=== PATIENT | male | born 1970 | race Caucasian/White ===

== ENCOUNTER 2019-10-18 10:11 | Emergency (ER) | payer BC ==
[2019-10-18] MEDS ORDERED: Sodium Chloride 0.9% 10 ML Syringe FLUSH PRN (11:06)
--- NOTE | 2019-10-18 11:11 | EDM.PDOC ---
ED HPI GENERAL MEDICAL PROBLEM - General Chief Complaint: Abdominal Pain Stated Complaint: LOW ABD PAIN Time Seen by Provider: 10/18/19 11:02 Source of Information: Reports: Patient, RN Notes Reviewed History Limitations: Reports: No Limitations - History of Present Illness INITIAL COMMENTS - FREE TEXT/NARRATIVE: 49-year-old gentleman presents emergency department a complaint of abdominal pain, he states he has had abdominal pain for the last 4 days his biggest concern is he has abdominal distention he does have a past surgical history of a Chari, no nausea no vomiting no fevers Lower Abdomen Pain Score (Numeric/FACES): 2 - Related Data Allergies Allergy/AdvReac Type Severity Reaction Status Date / Time No Known Allergies Allergy Verified 10/18/19 10:27 Home Meds: Home Meds Citalopram [Citalopram HBr] 20 mg PO DAILY 10/18/19 [History] Thiamine [Vitamin B-1] 200 mg IM ONETIME 10/18/19 [History] Past Medical History Gastrointestinal History: Reports: GERD Psychiatric History: Reports: Anxiety Hematologic History: Reports: Other (See Below) Other Hematologic History: vitamin B deficiency Dermatologic History: Reports: Other (See Below) Other Dermatologic History: rosasa - Past Surgical History HEENT Surgical History: Reports: Adenoidectomy, Tonsillectomy GI Surgical History: Reports: Appendectomy, Chari Fundoplication Other GI Surgeries/Procedures: 2002 Social & Family History - Tobacco Use Smoking Status *Q: Never Smoker - Caffeine Use Caffeine Use: Reports: Coffee - Recreational Drug Use Recreational Drug Use: No ED ROS GENERAL - Review of Systems Review Of Systems: See Below Constitutional: Reports: No Symptoms Respiratory: Reports: No Symptoms Cardiovascular: Reports: No Symptoms GI/Abdominal: Reports: Abdominal Pain, Distension. Denies: Nausea, Vomiting : Reports: No Symptoms ED EXAM, GI/ABD - Physical Exam Exam: See Below Exam Limited By: No Limitations General Appearance: Alert, WD/WN, No Apparent Distress Respiratory/Chest: No Respiratory Distress, Lungs Clear, Normal Breath Sounds, No Accessory Muscle Use, Chest Non-Tender Cardiovascular: Regular Rate, Rhythm, No Murmur GI/Abdominal Exam: Soft, Distended, Tender Course - Vital Signs Last Recorded V/S: Last Vital Signs Temp 96.2 F L 10/18/19 10:32 Pulse 94 10/18/19 10:32 Resp 16 10/18/19 10:32 BP 128/90 10/18/19 10:32 Pulse Ox 97 10/18/19 10:32 - Orders/Labs/Meds Orders: Active Orders 24 hr Category Date Time Status Peripheral IV Care [RC] . DIRECTED Care 10/18/19 11:06 Active UA W/MICROSCOPIC [URIN] Urgent Lab 10/18/19 11:06 Ordered Iopamidol [Isovue-300 (61%)] Med 10/18/19 11:33 Active 118 ml IV . DIRECTED PRN Lactated Ringers [Ringers, Lactated] 1,000 ml Med 10/18/19 11:15 Active IV ASDIRECTED Sodium Chloride 0.9% [Normal Saline] 85 ml Med 10/18/19 11:45 Active IV ASDIRECTED Sodium Chloride 0.9% [Saline Flush] Med 10/18/19 11:06 Active 10 ml FLUSH ASDIRECTED PRN Peripheral IV Insertion Adult [OM.PC] Urgent Oth 10/18/19 11:06 Ordered Medication Orders Lactated Ringer's (Ringers, Lactated) 1,000 mls @ 999 mls/hr IV ASDIRECTED [facility] Last Admin: 10/18/19 11:49 Dose: 999 mls/hr Documented by: PREILOR Sodium Chloride (Normal Saline) 85 mls @ 3.5 mls/sec IV ASDIRECTED [facility] Stop: 10/18/19 20:00 Last Admin: 10/18/19 11:47 Dose: 3.5 mls/sec Documented by: ALEJA Iopamidol (Isovue-300 (61%)) 118 ml IV . DIRECTED PRN PRN Reason: RADIOLOGY EXAM Stop: 10/19/19 11:34 Last Admin: 10/18/19 11:48 Dose: 118 ml Documented by: ALEJA Sodium Chloride (Saline Flush) 10 ml FLUSH ASDIRECTED PRN PRN Reason: Keep Vein Open Last Admin: 10/18/19 11:41 Dose: 10 ml Documented by: ALEJA Labs: Laboratory Tests 10/18/19 10/18/19 10/18/19 Range/Units 11:27 11:27 11:27 WBC 5.6 (4.5-11.0) K/uL RBC 5.16 (4.30-5.90) M/uL Hgb 15.7 H (12.0-15.0) g/dL Hct 46.7 (40.0-54.0) % MCV 91 (80-98) fL MCH 30 (27-31) pg MCHC 34 (32-36) % Plt Count 234 (150-400) K/uL Neut % (Auto) 53 (36-66) % Lymph % (Auto) 33 (24-44) % Major % (Auto) 10 H (2-6) % Eos % (Auto) 2 (2-4) % Baso % (Auto) 1 (0-1) % Sodium 140 (140-148) mmol/L Potassium 4.1 (3.6-5.2) mmol/L Chloride 104 (100-108) mmol/L Carbon Dioxide 29 (21-32) mmol/L Anion Gap 7.2 (5.0-14.0) mmol/L BUN 19 H (7-18) mg/dL Creatinine 1.3 (0.8-1.3) mg/dL Est Cr Clr Drug Dosing 72.40 mL/min Estimated GFR (MDRD) 58 L (>60) Glucose 97 (74-106) mg/dL Lactic Acid 1.4 (0.4-2.0) mmol/L Calcium 9.2 (8.5-10.1) mg/dL Total Bilirubin 0.5 (0.2-1.0) mg/dL AST 25 (15-37) U/L ALT 54 (12-78) U/L Alkaline Phosphatase 53 (46-116) U/L Troponin I < 0.017 (0.000-0.056) ng/mL Total Protein 7.7 (6.4-8.2) g/dL Albumin 4.2 (3.4-5.0) g/dL Globulin 3.5 (2.3-3.5) g/dL Albumin/Globulin Ratio 1.2 (1.2-2.2) Lipase 108 (73-393) U/L Meds: Medications Generic Name Dose Route Start Last Admin Trade Name Freq PRN Reason Stop Dose Admin Lactated Ringer's 1,000 mls @ 999 mls/hr 10/18/19 11:15 10/18/19 11:49 Ringers, Lactated IV 999 mls/hr ASDIRECTED [facility] Administration Sodium Chloride 85 mls @ 3.5 mls/sec 10/18/19 11:45 10/18/19 11:47 Normal Saline IV 10/18/19 20:00 3.5 mls/sec ASDIRECTED [facility] Administration Iopamidol 118 ml 10/18/19 11:33 10/18/19 11:48 Isovue-300 (61%) IV 10/19/19 11:34 118 ml . DIRECTED PRN Administration RADIOLOGY EXAM Sodium Chloride 10 ml 10/18/19 11:06 10/18/19 11:41 Saline Flush FLUSH 10 ml ASDIRECTED PRN Administration Keep Vein Open Departure - Departure Time of Disposition: 12:39 Disposition: Home, Self-Care 01 Condition: Fair Clinical Impression: Abdominal distention - Discharge Information Instructions: Abdominal Bloating Referrals: PCP,None [Primary Care Provider] - Forms: ED Department Discharge Additional Instructions: Continue with your regular diet, please followup with your primary care provider in 3-5 days if not better, please call return to the emergency department with worsening of symptoms. Sepsis Event Note (ED) - Evaluation Sepsis Screening Result: No Definite Risk - Focused Exam Vital Signs: Vital Signs Temp Pulse Resp BP Pulse Ox 10/18/19 10:32 96.2 F L 94 16 128/90 97 10/18/19 10:27 96.2 F L 94 16 128/90 97 10/18/19 10:24 96.2 F L 94 16 128/90 97 - My Orders Last 24 Hours: My Active Orders 10/18/19 11:06 Peripheral IV Care [RC] . DIRECTED UA W/MICROSCOPIC [URIN] Urgent Sodium Chloride 0.9% [Saline Flush] 10 ml FLUSH ASDIRECTED PRN Peripheral IV Insertion Adult [OM.PC] Urgent 10/18/19 11:15 Lactated Ringers [Ringers, Lactated] 1,000 ml IV ASDIRECTED 10/18/19 11:33 Iopamidol [Isovue-300 (61%)] 118 ml IV . DIRECTED PRN 10/18/19 11:45 Sodium Chloride 0.9% [Normal Saline] 85 ml IV ASDIRECTED - Assessment/Plan Last 24 Hours: My Active Orders 10/18/19 11:06 Peripheral IV Care [RC] . DIRECTED UA W/MICROSCOPIC [URIN] Urgent Sodium Chloride 0.9% [Saline Flush] 10 ml FLUSH ASDIRECTED PRN Peripheral IV Insertion Adult [OM.PC] Urgent 10/18/19 11:15 Lactated Ringers [Ringers, Lactated] 1,000 ml IV ASDIRECTED 10/18/19 11:33 Iopamidol [Isovue-300 (61%)] 118 ml IV . DIRECTED PRN 10/18/19 11:45 Sodium Chloride 0.9% [Normal Saline] 85 ml IV ASDIRECTED Plan: Assessment Acuity = acute Site and laterality = abdominal distention Etiology = unknown Manifestations = none Location of injury = Home Lab values = CBC, CMP, lipase, troponin all within normal limits urinalysis was not provided, CT scan of the abdomen shows no acute process Plan I did review lab work CT scan results with him he is going to follow-up with his primary care upon return home if not better This note was dictated using Vi[employer] voice recognition software please call with any questions on syntax or grammar.
[2019-10-18] MEDS ORDERED: Lactated Ringers 1,000 ML IV SCH (11:15)
[2019-10-18] MEDS ORDERED: Iopamidol 612 MG/ML 150 ML Bottle IV PRN (11:33)
--- NOTE | 2019-10-18 12:30 | CRLCT ---
INDICATION: Pelvic pain. Distention. COMPARISON: None TECHNIQUE: CT examination of the abdomen and pelvis was performed following the uneventful intravenous administration of 118 cc of Isovue-300. Thin section axial images were obtained from the lung bases through the pubic symphysis. Oral contrast was not administered. Please note that all CT scans at this facility use dose modulation, iterative reconstruction, and/or weight-based dosing when appropriate to reduce radiation dose to as low as reasonably achievable. FINDINGS: LUNG BASES: The lung bases as visualized appear normal.The heart size is normal at the lung bases. LIVER/BILIARY SYSTEM:The liver is normal in size and configuration. There is no focal mass and there is no intra- or extra hepatic biliary ductal dilatation.The gallbladder is contracted but otherwise unremarkable. No visible calculi. ADRENALS: Normal KIDNEYS, URETERS and BLADDER:Peripelvic sinus lymphatics cysts on the left. Cortical cyst midpole right kidney 3.1 centimeters. No calculus or obstructive uropathy. Normal appearing bladder and prostate SPLEEN:Normal appearance. PANCREAS: Appears normal. RETROPERITONEUM and MESENTERY: There is no mass, adenopathy or aortic aneurysm. GASTROINTESTINAL SYSTEM: There is no evidence of diverticulitis, colitis, mechanical obstruction, or appendicitis. The small bowel as visualized appears normal.There is diverticulosis. The appendix is not directly visible but there is no secondary findings of appendicitis on this exam. PELVIS: No mass, adenopathy or free fluid. OSSEOUS STRUCTURES and ABDOMINAL WALL: There is an age-appropriate appearance of the osseous structures.No significant abdominal wall defect. OTHER: No free fluid or free air. IMPRESSION: No visible etiology for pelvic pain and distension. Incidental findings as discussed above none of which appear to be acute Please note that all CT scans at this facility use dose modulation, iterative reconstruction, and/or weight-based dosing when appropriate to reduce radiation dose to as low as reasonably achievable. Dictated by Franklin Velasquez MD @ Oct 18 2019 12:23PM Signed by Dr. Franklin Velasquez @ Oct 18 2019 12:28PM
== END 2019-10-18 12:55 | disposition home or self-care (01) ==
LOC: JP.ED 10:11
DX: R14.0 Abdominal distension (gaseous) (principal); F41.9 Anxiety disorder, unspecified; Z79.899 Other long term (current) drug therapy
CPT/HCPCS: 36415; 74177; 80053; 83605; 83690; 84484; 85025; 99284; J7050; J7120; Q9967